=== PATIENT | male | born 2000 | race Hispanic/Latino ===

== ENCOUNTER 2021-09-10 10:43 | Emergency (ER) | payer SELFPAY ==
[~2021-09-10] VITALS: Ht 170.2 cm; Wt 54.4 kg
[2021-09-10] MEDS ORDERED: ACETAMINOPHEN 325 MG TAB ONE (12:07)
[2021-09-10] MEDS ORDERED: ONDANSETRON HCL 4 MG ORAL DISINTEGRATING TAB ONE (12:07)
[2021-09-10] MEDS ORDERED: IBUPROFEN 600 MG TAB ONE (12:07)
[2021-09-10] MEDS ORDERED: IBUPROFEN 400 MG TAB PO ONE (12:45)
[2021-09-10] MEDS ORDERED: ONDANSETRON HCL 4 MG ORAL DISINTEGRATING TAB PO ONE (13:00)
[2021-09-10] MEDS ORDERED: ACETAMINOPHEN 325 MG TAB PO ONE (13:30)
[2021-09-10] MEDS ORDERED: ONDANSETRON ODT4 MG PO (13:43)
[2021-09-10 13:48] VITALS: BP 126/78
== END 2021-09-10 13:48 | disposition home or self-care (01) ==
LOC: FSED 13:00
DX: U07.1 COVID-19 (principal); B34.9 Viral infection, unspecified; R50.9 Fever, unspecified
CPT/HCPCS: 83518; 87400; 99283; Q0162; U0002

== ENCOUNTER 2021-11-04 15:26 | Emergency (ER) | payer SELFPAY ==
[~2021-11-04] VITALS: Ht 170.2 cm; Wt 54.4 kg
[~2021-11-04 15:26] MED LIST: ONDANSETRON ODT4 MG PO
== END 2021-11-04 15:57 | disposition left against medical advice (07) ==
LOC: FSED 15:33
DX: N34.2 Other urethritis (principal)